=== PATIENT | female | born 1990 | race Hispanic/Latino ===

== ENCOUNTER 2017-03-27 22:09 | Emergency (ER) | payer SELFPAY ==
[~2017-03-27] VITALS: Ht 154.9 cm; Wt 55.0 kg
[2017-03-27 23:07] LABS: INFLUENZA A POSITIVE (NONE DETECT); INFLUENZA B NONE DETECTED (NONE DETECT)
[2017-03-27] MEDS ORDERED: TAM75CAP PO (23:41)
[2017-03-27] MEDS ORDERED: AMOXICILLIN500 MG PO (23:41)
[2017-03-27 23:48] VITALS: BP 112/68
== END 2017-03-27 23:48 | disposition home or self-care (01) | DRG 153 ==
LOC: ED 22:09
PROVIDERS: Emergency Medicine
DX: J11.1 Influenza due to unidentified influenza virus with other respiratory manifestations (principal)